=== PATIENT | female | born 1965 | race Caucasian/White ===

== ENCOUNTER → 2019-01-11 | Outpatient (CLI) | payer MEDICARE, OTHER ==
[~2019-01-11] MED LIST: ATOR20TA86 PO; DIVA-76 PO; FAMO20 PO; FLUT16H NASAL; HYDR10TA31 PO; HYDR25TA PO; LEVO125 PO; LISI-662 PO; METF-960 PO; RISP.5 PO
[2019-01-12 10:38] LABS: CHOL/HDL RATIO 3.5 (3.9-5.7)
== END | disposition home or self-care (01) ==
LOC: LABMN 11:00
PROVIDERS: ATTEND Psychiatry & Neurology Psychiatry
DX: F25.9 Schizoaffective disorder, unspecified (principal); I10 Essential (primary) hypertension; E11.9 Type 2 diabetes mellitus without complications; E03.9 Hypothyroidism, unspecified; E78.5 Hyperlipidemia, unspecified
CPT/HCPCS: 82947; 83036

== ENCOUNTER → 2020-12-31 | Outpatient (CLI) | payer MEDICARE, OTHER ==
[~2020-12-31] MED LIST changes: +DIVA-111 PO; -DIVA-76 PO; -HYDR25TA PO; +HYDR25TA2 PO; -LISI-662 PO; +LISI-894 PO; -RISP.5 PO; +RISP0.5T39 PO
[2020-12-31 20:44] LABS: CHOL/HDL RATIO 3.5 (3.9-5.7)
[2020-12-31 21:18] LABS: HEMOGLOBIN A1C 7.3 % (3.8-5.6)
== END | disposition home or self-care (01) ==
LOC: LABPV 14:18
PROVIDERS: ATTEND Psychiatry & Neurology Psychiatry
DX: F25.9 Schizoaffective disorder, unspecified (principal); E11.9 Type 2 diabetes mellitus without complications
CPT/HCPCS: 82947; 83036

== ENCOUNTER → 2022-02-21 | Outpatient (CLI) | payer MEDICARE, OTHER ==
[~2022-02-21] MED LIST changes: +METF-1211 PO; -METF-960 PO
[2022-02-21 15:18] LABS: CHOL/HDL RATIO 5.1 (3.9-5.7); CHOLESTEROL 183 mg/dL (131-200); GLUCOSE,RANDOM 245 mg/dL (70-110); HDL CHOLESTEROL 36 mg/dL (40-60); TRIGLYCERIDES 617 mg/dL (15-150)
[2022-02-21 15:22] LABS: HEMOGLOBIN A1C 8.9 % (3.8-5.6)
== END | disposition home or self-care (01) ==
LOC: LABPV 14:27
PROVIDERS: ATTEND Psychiatry & Neurology Psychiatry
DX: F25.0 Schizoaffective disorder, bipolar type (principal); Z79.899 Other long term (current) drug therapy
CPT/HCPCS: 80061; 82947; 83036

== ENCOUNTER 2022-07-02 11:44 | Emergency (ER) | payer MEDICARE, OTHER ==
[~2022-07-02] VITALS: Ht 162.6 cm; Wt 75.7 kg
[2022-07-02] MEDS ORDERED: DEUT12TA PO (12:02)
[2022-07-02] MEDS ORDERED: ARIP10TA38 PO (12:02)
[2022-07-02] MEDS ORDERED: BUPR-50 PO (12:02)
[2022-07-02] MEDS ORDERED: FLUO20SO PO (12:02)
[2022-07-02] MEDS ORDERED: METF-1211 PO (12:08)
[2022-07-02] MEDS ORDERED: ALBU8.5H8 IH (12:08)
[2022-07-02] MEDS ORDERED: GLIP10TA9 PO (12:08)
[2022-07-02] MEDS ORDERED: INSNOV SQ (12:11)
[2022-07-02] MEDS ORDERED: SODIUM CHLORIDE 0.9% 1,000 ML IV ONE (13:15)
[2022-07-02 13:23] LABS: APPEARANCE,URINE CLEAR (CLEAR); BILIRUBIN,URINE NEGATIVE (NEGATIVE); GLUCOSE, URINE (UA) >=1000 mg/dL (NEGATIVE); KETONES,URINE TRACE mg/dL (NEGATIVE); LEUKOCYTE ESTERASE ,URINE NEGATIVE (NEGATIVE); NITRATE,URINE NEGATIVE (NEGATIVE); OCCULT BLOOD,URINE NEGATIVE (NEGATIVE); PROTEIN,URINE NEGATIVE (NEGATIVE); UROBILINOGEN,URINE <=1.0 mg/dL (<=1.0)
[2022-07-02 13:26] LABS: GLUCOSE,POINT OF CARE 378 MG/DL (70-110)
[2022-07-02] MEDS ORDERED: INSULIN REGULAR, HUMAN 100 UNITS/ML IVP ONE (13:30)
[2022-07-02 13:35] LABS: BACTERIA,URINE None Seen /HPF (None Seen); RBC,URINE 0-2 /HPF (0-2); SQUAMOUS EPITHELIAL CELL,UR Few /LPF (None Seen); WBC,URINE 0-2 /HPF (0-5)
[2022-07-02 13:37] LABS: BASOPHILS % (AUTO) 1.3 % (0.0-2.0); HEMOGLOBIN 12.3 g/dL (12.0-16.0); LYMPHOCYTES % (AUTO) 39.3 % (22.0-44.0); MEAN CORPUSCULAR HEMOGLOBIN 29.3 pg (26.0-34.0); MEAN CORPUSCULAR HGB CONC 34.3 G/dL (31.0-37.0); MEAN CORPUSCULAR VOLUME 86 fL (80-100); MONOCYTES # (AUTO) 0.4 K/uL (0.1-1.0); MONOCYTES % (AUTO) 8.4 % (2.0-9.0); NEUTROPHILS # (AUTO) 2.5 K/uL (1.8-7.7); PLATELET COUNT (AUTO) 184 K/uL (150-450); RED BLOOD CELL COUNT(AUTO) 4.21 MIL/uL (4.00-5.20); RED CELL DISTRIBUTION WIDTH 13.3 % (11.5-14.5)
[2022-07-02 13:48] LABS: ANION GAP 10 mmol/L (8-16); CALCIUM, TOTAL 8.1 mg/dL (8.8-10.5); CARBON DIOXIDE 25 mmol/L (22-29); CHLORIDE 101 mmol/L (98-107); CREATININE 0.84 mg/dL (0.60-1.30); GLOMERULAR FILTR. RATE CALC > 60 mL/min (>60); GLUCOSE,RANDOM 344 mg/dL (70-110); POTASSIUM 4.2 mmol/L (3.5-5.1); SODIUM SERUM 136 mmol/L (136-145); UREA NITROGEN, BLOOD 14 mg/dL (7-18)
[2022-07-02 13:53] LABS: ALANINE AMINOTRANSFERASE 42 U/L (12-78); ALBUMIN 3.5 g/dL (3.4-5.0); ALKALINE PHOSPHATASE 97 U/L (46-116); ASPARTATE AMINOTRANSFERASE 21 U/L (15-37); BILIRUBIN,TOTAL 0.3 mg/dL (0.1-1.0); TOTAL PROTEIN, SERUM 6.9 g/dL (6.4-8.2)
[2022-07-02 14:22] LABS: GLUCOSE,POINT OF CARE 308 MG/DL (70-110)
[2022-07-02 15:25] VITALS: BP 130/78
== END 2022-07-02 16:55 | disposition home or self-care (01) ==
LOC: EMS 11:44
DX: E11.65 Type 2 diabetes mellitus with hyperglycemia (principal); E86.0 Dehydration; E78.00 Pure hypercholesterolemia, unspecified; I10 Essential (primary) hypertension; E07.9 Disorder of thyroid, unspecified
CPT/HCPCS: 99284; 96374; 96361; 80053; 81001; 82962; 84484; 85025; 36415; 93005; J1815; J7030

== ENCOUNTER → 2023-06-15 | Outpatient (CLI) | payer MEDICARE, OTHER ==
[~2023-06-15] MED LIST changes: +ALBU8.5H8 IH; +ARIP10TA38 PO; +ATOR20TA PO; -ATOR20TA86 PO; +BUPR-50 PO; +DEUT12TA PO; -DIVA-111 PO; -FAMO20 PO; +FLUO20SO PO; -FLUT16H NASAL; +FLUT16SP NASAL; +GLIP10TA9 PO; -HYDR10TA31 PO; +INSNOV SQ; -RISP0.5T39 PO
[2023-06-15 18:05] LABS: CHOL/HDL RATIO 3.6 (3.9-5.7)
[2023-06-15 18:10] LABS: HEMOGLOBIN A1C 8.8 % (3.8-5.6)
== END | disposition home or self-care (01) ==
LOC: LABMN 12:23
PROVIDERS: ATTEND Psychiatry & Neurology Psychiatry
DX: I25.10 Atherosclerotic heart disease of native coronary artery without angina pectoris (principal); R73.03 Prediabetes; R79.9 Abnormal finding of blood chemistry, unspecified; Z79.899 Other long term (current) drug therapy
CPT/HCPCS: 80061; 82947; 83036